=== PATIENT | female | born 1965 | race Caucasian/White ===

== ENCOUNTER → 2025-03-26 | Outpatient (CLI) | payer MEDICARE, SELFPAY ==
--- NOTE | 2025-03-26 12:53 | XR_ITS ---
Examination: Duplex scan of the lower extremity, unilateral left complete Date and time of exam: March 26, 2025 1336 hours INDICATIONS: Left calf pain left leg pain one month Technique: Duplex scan of the extremity veins using B-mode/grayscale imaging and Doppler spectral analysis and color flow Attention is directed to internal echogenicity, compression and augmentation involving these veins, color flow assessment, spectral analysis Findings: Positive for non occlusive DVT involving the distal left superficial femoral vein Remaining deep venous system open IMPRESSION: Positive for nonocclusive acute DVT distal left superficial femoral vein
--- NOTE | 2025-03-26 12:57 | XR_ITS ---
Examination: Lumbar spine, 5 views Technique: Lumbar spine AP, lateral, coned lateral lower lumbar spine, bilateral obliques 5 views Exam date and time: March 26, 2025 1349 hours INDICATIONS: Low back pain beginning one month ago. FINDINGS: Moderate diffuse facet arthropathy Grade 1 spondylolisthesis L5 on S1 No lumbar fracture Mild diffuse lumbar disc narrowing IMPRESSION: Grade 1 spondylolisthesis L5 on S1 Mild diffuse lumbar degenerative disc disease
== END | disposition home or self-care (01) ==
LOC: CDIM 12:40
PROVIDERS: PCP Family Medicine; Referring Provider Nurse Practitioner Family; Visit Provider Nurse Practitioner Family
DX: I82.412 Acute embolism and thrombosis of left femoral vein (principal); M43.17 Spondylolisthesis, lumbosacral region; M51.360 Other intervertebral disc degeneration, lumbar region with discogenic back pain only
CPT/HCPCS: 72110; 93971